=== PATIENT | female | born 1960 | race Caucasian/White ===

== ENCOUNTER 2018-11-11 00:42 | Emergency (ER) | payer OTHER ==
[~2018-11-11] VITALS: Ht 167.6 cm; Wt 75.8 kg
[2018-11-11] MEDS ORDERED: EFFEXOR 5050 MG/1 T1 PO (01:18)
[2018-11-11] MEDS ORDERED: ZPAK PO (01:18)
[2018-11-11] MEDS ORDERED: TORADOL 10 MG T10 MG PO (03:09)
[2018-11-11] MEDS ORDERED: HYDROCODON-ACE1 EAC7 PO (03:09)
[2018-11-11 03:20] VITALS: BP 158/102
== END 2018-11-11 03:20 | disposition home or self-care (01) ==
LOC: M.ERS 00:42
DX: M79.18 Myalgia, other site (principal); F32.9 Major depressive disorder, single episode, unspecified; F41.9 Anxiety disorder, unspecified; F17.210 Nicotine dependence, cigarettes, uncomplicated; Z88.8 Allergy status to other drugs, medicaments and biological substances; Z90.710 Acquired absence of both cervix and uterus